=== PATIENT | male | born 1995 ===

== ENCOUNTER 2024-10-15 12:11 | Emergency (ER) | payer MEDICAID, SELFPAY ==
--- NOTE | 2024-10-15 12:15 | ED_ITS ---
HPI - General Adult General Chief complaint: Altered Mental Status Stated complaint: ETOH USE,CALM/COOP PER EMS Time Seen by Provider: 10/15/24 12:14 Source: patient, EMS, RN notes reviewed and old records reviewed Mode of arrival: EMS History of Present Illness ED Provider: Waq[facility] narrative: Patient is a 29-year-old male with history of alcohol use disorder presenting to the ED after being brought in by EMS after being found stumbling around in a convenience store. Patient states that he was previously sober for 102 days prior to this morning. Denies drug use. Denies suicidal or homicidal ideation, auditory or visual hallucinations. States he is not interested in assistance with detox. Denies any acute physical complaints. States he moved here from [place] around one year ago. Denies fall or other trauma. MD complaint: alcohol intoxication Related Data Allergies Allergy/AdvReac Type Severity Reaction Status Date / Time No Known Allergies Allergy Verified 10/15/24 12:53 Review of Systems 2 Review of Systems: As per HPI Yes all other systems are reviewed and are negative Constitutional: Constitutional: Reports as per HPI Physical Exam ED Vital Signs: Vital Signs - 24 hr 10/15/24 12:50 10/15/24 13:45 10/15/24 16:09 Temperature 98.4 F 97.5 F Pulse Rate 97 88 Respiratory Rate 16 20 Blood Pressure 136/84 165/103 H Pulse Oximetry 96 98 Oxygen Delivery Method Room Air Room Air Room Air BMI result Body Mass Index 19.8 Vital signs have been reviewed and appear to be correct. Blood pressure normal. Heart rate normal. Respiratory rate normal. Temperature normal. Oxygen saturation normal. Const General: cooperative, healthy appearing, no acute distress and intoxicated appearing Orientation/consciousness: oriented to person, oriented to place, oriented to time and patient oriented x3 HENMT Head: Yes normocephalic and Yes atraumatic Ears: external ears normal General nose exam: Normal external nose present Face and sinus: Yes face symmetric Mouth: oropharynx normal and moist mucous membranes Throat: Yes uvula midline Eyes Pupils: Equal, round and reactive pupils present Neck Neck: Yes normal visual inspection and Yes supple Resp Effort & Inspection: normal respiratory effort and able to speak in complete sentences Auscultation: clear to auscultation bilaterally Cardio Rate: regular rate Rhythm: regular rhythm Heart sounds: S1 normal heart sound present and S2 normal heart sound present GI Palpation (GI): Soft to palpation and nontender Auscultation: normoactive bowel sounds General: Yes no CVA tenderness Back/Spine/Pelvis Back: no CVA tenderness Skin General skin exam: elasticity normal and turgor normal Neuro General: oriented to person, oriented to place, oriented to time, patient oriented x3, moves all extremities, no focal motor deficits and CN's II-XI intact bilaterally Cranial nerves: Yes Equal, round and reactive pupils present Cognition (Neuro): normal cognition Extrem General: Yes full ROM, Yes no pedal edema and Yes no calf tenderness Psych Mental Status: mental status grossly normal Affect: normal affect Thought process: Normal thought process present Course Reevaluation(s) Reevaluation #1: Spoke with patient's mother who lives in [place]. She states she will try to find him a sober ride home. Time: 13:17 Medical Decision Making Medical Decision Making [facility] Narrative: Patient is a 29-year-old male with history of alcohol use disorder presenting to the ED after being brought in by EMS after being found stumbling around in a convenience store. On exam patient is awake, A+Ox3, VS WNL, afebrile, normal neurological exam without focal deficits, physical exam findings as above. Given reported symptoms and physical exam findings, initial differential includes but is not limited to alcohol or drug intoxication or withdrawal, electrolyte abnormality. Labs notable for ethanol of 329, Utox positive for cannabis. Anthony now at bedside and has obtained and has gotten patient accepted to detox in [place], she will be driving him directly there. I am comfortable with discharging him to her care. Return precautions discussed. Differential Diagnosis Differential Diagnoses: The differential diagnosis associated with the presentation includes as per [facility] Admission/Observation Consideration of admission/observation: Escalation of care including admission/observation considered Patient would have been admitted to the hospital had their clinical presentation warranted hospital admission. Lab Data [facility] Lab Attestation statement: I reviewed the patient's lab results. as per [facility] 10/15/24 13:20 10/15/24 13:20 Labs: Lab Results 10/15/24 10/15/24 10/15/24 Range/Units 13:20 13:44 14:03 WBC 7.7 (4.8-10.8) X10*3/uL RBC 3.73 L (4.60-5.80) X10*6/uL Hgb 11.6 L (14.0-18.0) g/dl Hct 35.1 L (42.0-52.0) % MCV 94.1 (80.0-98.0) fL MCH 31.1 (27.0-33.0) pg MCHC 33.0 (31.0-36.0) g/dl RDW 12.6 (11.0-16.0) % Plt Count 200 (160-400) X10*3/uL MPV 9.8 (9.4-12.4) fL Immature Gran % (Auto) 0.1 (0.0-0.4) % Neut % (Auto) 68.3 (45-73) % Lymph % (Auto) 26.9 (20-40) % Miller % (Auto) 4.2 (2-11) % Eos % (Auto) 0.1 (0-4) % Baso % (Auto) 0.4 (0-2) % Lymph # (Auto) 2.1 (1.2-4.9) X10*3/uL Miller # (Auto) 0.3 (0.1-1.2) X10*3/uL Eos # (Auto) 0.0 (0.0-0.4) X10*3/uL Baso # (Auto) 0.0 (0.0-0.2) X10*3/uL Abs Immat Gran (auto) 0.01 (0.00-0.03) X10*3/uL Absolute Neuts (auto) 5.3 (2.0-8.3) x10*3/uL Absolute Nucleated RBC 0.000 (0.0-0.012) X10*3/uL Nucleated RBC % (auto) 0.0 (0.0-0.2) /100WBC Sodium 151 H (135-145) mmol/L Potassium 3.3 (3.3-5.1) mmol/L Chloride 115 H (96-108) mmol/L Carbon Dioxide 27 (22-29) mmol/L Anion Gap 12 (12-20) BUN 13 (9-16) mg/dL Creatinine 1.33 (0.5-1.4) mg/dL Estim Creat Clear Calc 75.3 Estimated GFR > 60 Random Glucose 91 (60-115) mg/dL Calcium 8.7 (8.4-10.2) mg/dL Total Bilirubin 0.4 (0.0-1.0) mg/dL AST 55 H (5-37) U/L ALT 30 (0-40) U/L Alkaline Phosphatase 66 (39-117) U/L Total Protein 7.6 (6.5-8.0) g/dL Albumin 4.9 (3.5-5.0) g/dL Urine Color Cancelled Yellow Urine Appearance Cancelled Clear Urine pH Cancelled 5.5 Ur Specific [place] Cancelled 1.020 Urine Protein Cancelled 30 (1+) H Urine Glucose (UA) Cancelled Negative Urine Ketones Cancelled Trace Urine Blood Cancelled Small (1+) H Urine Nitrite Cancelled Negative Ur Leukocyte Esterase Cancelled Negative Urine RBC 0-2 (0-2) /HPF Urine WBC 0-5 (0-5) /HPF Ur Squamous Epith Cells 0-2 (0-2) /HPF Urine Bacteria None Seen (None Seen) Hyaline Casts 0-2 (0-2) /LPF Urine Opiates Screen Not Detected (Not Detect) Ur Buprenorphine Scrn Not Detected (Not Detect) ng/mL Ur Oxycodone Screen Not Detected (Not Detect) ng/mL Urine Methadone Screen Not Detected (Not Detect) ng/mL Urine Fentanyl Screen Not Detected (Not Detect) Ur Barbiturates Screen Not Detected (Not Detect) Ur Phencyclidine Scrn Not Detected (Not Detect) Ur Amphetamines Screen Not Detected (Not Detect) U Benzodiazepines Scrn Not Detected (Not Detect) Urine Cocaine Screen Not Detected (Not Detect) U Marijuana (THC) Screen POSITIVE H (Not Detect) Ethyl Alcohol 329 H* mg/dL 10/15/24 Range/Units 14:04 WBC (4.8-10.8) X10*3/uL RBC (4.60-5.80) X10*6/uL Hgb (14.0-18.0) g/dl Hct (42.0-52.0) % MCV (80.0-98.0) fL MCH (27.0-33.0) pg MCHC (31.0-36.0) g/dl RDW (11.0-16.0) % Plt Count (160-400) X10*3/uL MPV (9.4-12.4) fL Immature Gran % (Auto) (0.0-0.4) % Neut % (Auto) (45-73) % Lymph % (Auto) (20-40) % Miller % (Auto) (2-11) % Eos % (Auto) (0-4) % Baso % (Auto) (0-2) % Lymph # (Auto) (1.2-4.9) X10*3/uL Miller # (Auto) (0.1-1.2) X10*3/uL Eos # (Auto) (0.0-0.4) X10*3/uL Baso # (Auto) (0.0-0.2) X10*3/uL Abs Immat Gran (auto) (0.00-0.03) X10*3/uL Absolute Neuts (auto) (2.0-8.3) x10*3/uL Absolute Nucleated RBC (0.0-0.012) X10*3/uL Nucleated RBC % (auto) (0.0-0.2) /100WBC Sodium (135-145) mmol/L Potassium (3.3-5.1) mmol/L Chloride (96-108) mmol/L Carbon Dioxide (22-29) mmol/L Anion Gap (12-20) BUN (9-16) mg/dL Creatinine (0.5-1.4) mg/dL Estim Creat Clear Calc Estimated GFR Random Glucose (60-115) mg/dL Calcium (8.4-10.2) mg/dL Total Bilirubin (0.0-1.0) mg/dL AST (5-37) U/L ALT (0-40) U/L Alkaline Phosphatase (39-117) U/L Total Protein (6.5-8.0) g/dL Albumin (3.5-5.0) g/dL Urine Color Urine Appearance Urine pH Ur Specific [place] Urine Protein Urine Glucose (UA) Urine Ketones Urine Blood Urine Nitrite Ur Leukocyte Esterase Urine RBC (0-2) /HPF Urine WBC (0-5) /HPF Ur Squamous Epith Cells (0-2) /HPF Urine Bacteria (None Seen) Hyaline Casts (0-2) /LPF Urine Opiates Screen Cancelled (Not Detect) Ur Buprenorphine Scrn Cancelled (Not Detect) ng/mL Ur Oxycodone Screen Cancelled (Not Detect) ng/mL Urine Methadone Screen Cancelled (Not Detect) ng/mL Urine Fentanyl Screen Cancelled (Not Detect) Ur Barbiturates Screen Cancelled (Not Detect) Ur Phencyclidine Scrn Cancelled (Not Detect) Ur Amphetamines Screen Cancelled (Not Detect) U Benzodiazepines Scrn Cancelled (Not Detect) Urine Cocaine Screen Cancelled (Not Detect) U Marijuana (THC) Screen Cancelled (Not Detect) Ethyl Alcohol mg/dL External Record Review External record reviewed: Inpatient record, Office record and Outpatient record Discharge Plan Discharge Clinical Impression: Alcoholic intoxication Patient Disposition: Home, Self-Care Instructions: Alcohol Intoxication (DC), Alcohol Use Disorder (ED) Additional Instructions: Alcohol use disorder You were seen in the Emergency Department today for treatment of alcohol use disorder.? You may have been given medications to help with your withdrawal symptoms.? Please do not drink alcohol with them. This is very dangerous and can cause respiratory depression or other adverse reactions depending on the medication. If you would like to cut down or stop your alcohol use please consider calling our outpatient Addiction Treatment office:? [facility] (M-F [id number]) [address] [address] ? You have also been given a list of treatment providers in the area that can assist as well.? If you experience seizures, vomiting blood, black stools, falls, severe headache, chest pain, fevers, trouble breathing, hallucinations or any other concerns you need to call 911 or seek immediate care. Please stay hydrated.
[2024-10-15 12:17] VITALS: BP 132/86; PULSE 108; O2SAT 98
[2024-10-15 12:50] VITALS: BP 136/84; PULSE 97; RESP 16; TEMP 36.9; O2SAT 96; BMI 19.8
--- NOTE | 2024-10-15 12:54 | PC.NURSE ---
Pt pleasant and A&O X4 VSS NAD No complaints- states I got drunk and I just want to go home . Pt with sitter for safety.
[2024-10-15 13:25] LABS: MANUAL DIFF FLAG NO
[2024-10-15 13:27] LABS: Hematocrit 35.1 % (42.0-52.0); Hemoglobin 11.6 g/dl (14.0-18.0); Imm Gran Abs Auto 0.01 X10*3/uL (0.00-0.03); Imm Gran Pct Auto 0.1 % (0.0-0.4); Lymphocytes Absolute Auto 2.1 X10*3/uL (1.2-4.9); Mean Corpuscular HGB Conc 33.0 g/dl (31.0-36.0); Mean Corpuscular Hemoglobin 31.1 pg (27.0-33.0); Mean Corpuscular Volume 94.1 fL (80.0-98.0); NRBC Abs Auto 0.000 X10*3/uL (0.0-0.012); NRBC Pct Auto 0.0 /100WBC (0.0-0.2); Platelet Count 200 X10*3/uL (160-400); Red Blood Count 3.73 X10*6/uL (4.60-5.80); White Blood Count 7.7 X10*3/uL (4.8-10.8)
[2024-10-15 13:45] LABS: Alanine Aminotransferase 30 U/L (0-40); Albumin Level 4.9 g/dL (3.5-5.0); Alkaline Phosphatase 66 U/L (39-117); Anion Gap 12 (12-20); Aspartate Amino Transferase 55 U/L (5-37); Blood Urea Nitrogen 13 mg/dL (9-16); Calcium 8.7 mg/dL (8.4-10.2); Carbon Dioxide 27 mmol/L (22-29); Chloride 115 mmol/L (96-108); Creatinine Clr Calc Pharmacy 75.3; Estimated Glomerular Filt Rate > 60; Potassium 3.3 mmol/L (3.3-5.1); Sodium 151 mmol/L (135-145); Total Protein 7.6 g/dL (6.5-8.0)
[2024-10-15 14:12] LABS: Appearance Urine Clear; Glucose Urine UA Negative (Negative); PH 5.5 (5.0-9.0); Specific Gravity - Urine 1.020 (1.005-1.025); UMIC TRIGGER UACC YES
[2024-10-15 14:17] LABS: Cannabinoid Screen Urine POSITIVE (Not Detect)
--- NOTE | 2024-10-15 15:36 | PC.NURSE ---
Patient is a 29-year-old male with history of alcohol use disorder presenting to the ED after being brought in by EMS after being found stumbling around in a convenience store. Patient states that he was previously sober for 102 days prior to this morning. Denies drug use. Denies suicidal or homicidal ideation, auditory or visual hallucinations. Patient alert and oriented. Lungs clear bilat. respirations even and non-labored. abdomen soft, non-tender with positive bowel sounds. Positive pedal pulses with no edema. Patient remains on constant observations for safety
[2024-10-15 16:09] VITALS: BP 165/103; PULSE 88; RESP 20; TEMP 36.4; O2SAT 98
--- NOTE | 2024-10-15 16:31 | PC.NURSE ---
Patient left without discharge instructions. Anthony plans to take patient to rehab. Ambulated out of the department with a steady gait.
== END 2024-10-15 16:32 | disposition home or self-care (01) ==
LOC: HO.ED 16:31
PROVIDERS: Registered Nurse Emergency; Emergency Provider Emergency Medicine
DX: F10.129 Alcohol abuse with intoxication, unspecified (principal); Y90.8 Blood alcohol level of 240 mg/100 ml or more
CPT/HCPCS: 36415; 80053; 80307; 81001; 85025; 99283